=== PATIENT | female | born 1990 | race Caucasian/White ===

== ENCOUNTER 2019-11-13 21:46 | Emergency (ER) | payer MEDICAID ==
[~2019-11-13] VITALS: Ht 157.5 cm; Wt 59.0 kg
[2019-11-13 21:52] VITALS: Ht 157.5 cm; Wt 59.0 kg
[2019-11-13 23:46] VITALS: BP 98/61
== END 2019-11-14 | disposition home or self-care (01) ==
LOC: ED 21:46
DX: J02.9 Acute pharyngitis, unspecified (principal)

== ENCOUNTER 2020-05-01 10:20 | Emergency (ER) | payer MEDICAID ==
[~2020-05-01] VITALS: Ht 157.5 cm; Wt 59.0 kg
[2020-05-01 10:37] VITALS: Ht 157.5 cm; Wt 59.0 kg
[2020-05-01 11:33] LABS: microscopic required? NO
[2020-05-01 11:39] LABS: UA SPECIFIC GRAVITY 1.015 (1.005-1.035); urine erythrocyte NEGATIVE (NEGATIVE)
[2020-05-01 13:30] VITALS: BP 106/60
== END 2020-05-01 13:30 | disposition home or self-care (01) ==
LOC: ED 10:20
PROVIDERS: Student in an Organized Health Care Education/Training Program
DX: M54.5 Low back pain (principal); M62.830 Muscle spasm of back
CPT/HCPCS: J1885